=== PATIENT | male | born 1945 | race American Indian/Alaskan Native ===

== ENCOUNTER 2017-03-15 17:36 | Emergency (ER) | payer BC, MEDICARE ==
[2017-03-16] MEDS ORDERED: MOTRIN ONE (01:23)
[2017-03-16] MEDS ORDERED: MOTRIN PO ONE (01:24)
--- NOTE | 2017-03-16 02:00 | XRay Report ---
FINAL REPORT EXAM: XR SPINE CERVICAL 2-3V HISTORY: pain to neck TECHNIQUE: Four views of the cervical spine were obtained. FINDINGS: C1 through C6 are identified. C7 is not adequately seen for evaluation. There is [id number] narrowing of the C4-C5 and C5-C6 disc with endplate spurring. The alignment appears normal. The prevertebral soft tissues and C1-C2 articulation appears intact. IMPRESSION: Limited study as described. 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 C7 not adequately seen for evaluation
[2017-03-16 02:56] VITALS: BP 138/84
--- NOTE | 2017-03-16 05:01 | Emergency Department Report ---
ED Neck Pain/Injury HPI - General Chief Complaint: Neck Pain/Injury Stated Complaint: NECK AND BACK PAIN Time Seen by Provider: 03/16/17 04:49 Source: patient, family () Mode of arrival: Ambulatory Limitations: No Limitations - History of Present Illness Complaint: neck pain -: Gradual (2 weeks) Place: home Radiation: right shoulder, left shoulder Severity scale (0 -10): 10 Quality: aching Consistency: intermittent Improves With: other (message by ) Worsens With: movement of neck Context: other (sleep) Associated Symptoms: denies: headache, numbness, tingling, weakness, difficulty walking, difficulty swallowing Treatments Prior to Arrival: Ibuprofen - Related Data Previous Rx's Medication Instructions Recorded Last Taken Type Cyclobenzaprine [Flexeril] 10 mg PO TID PRN #30 tablet 03/16/17 Unknown Rx Ibuprofen [Motrin] 800 mg PO Q8HR PRN #30 tablet 03/16/17 Unknown Rx Allergies Allergy/AdvReac Type Severity Reaction Status Date / Time No Known Allergies Allergy Unverified 03/15/17 19:28 ED Review of Systems ROS: Stated complaint: NECK AND BACK PAIN Other details as noted in HPI Comment: All other systems reviewed and negative Constitutional: denies: diaphoresis, fever Respiratory: denies: cough Cardiovascular: denies: chest pain, palpitations, syncope Skin: as per HPI (keloids noted to neck) Neurological: as per HPI ED Past Medical Hx - Past Medical History Hx Hypertension: Yes Hx Congestive Heart Failure: Yes Hx COPD: Yes - Surgical History Past Surgical History?: Yes - Social History Smoking Status: Former Smoker Substance Use Type: None - Medications Home Medications: Home Medications Medication Instructions Recorded Confirmed Last Taken Type Cyclobenzaprine [Flexeril] 10 mg PO TID PRN #30 tablet 03/16/17 Unknown Rx Ibuprofen [Motrin] 800 mg PO Q8HR PRN #30 tablet 03/16/17 Unknown Rx ED Physical Exam - General Limitations: No Limitations General appearance: alert - Head Head exam: Present: atraumatic - Eye Eye exam: Present: normal appearance - ENT ENT exam: Present: normal exam - Respiratory Respiratory exam: Present: normal lung sounds bilaterally (Patient on O2 NC 2L) - Cardiovascular Cardiovascular Exam: Present: regular rate - Back Exam Back exam: Present: normal inspection, vertebral tenderness - Neurological Exam Neurological exam: Present: alert, oriented X3 (Oxygen at home 2L), CN II-XII intact - Psychiatric Psychiatric exam: Present: normal affect - Skin Skin exam: Present: warm, dry, intact ED Course Vital Signs 03/15/17 03/16/17 19:28 01:55 Temperature 98.3 F 97.9 F Pulse Rate 69 60 Respiratory 20 18 Rate Blood Pressure 121/83 Blood Pressure 138/84 [Right] O2 Sat by Pulse 92 94 Oximetry ED Medical Decision Making - Medical Decision Making Iván is a 71 year old male who presents to the emergency room c/o neck pain. He reports 2 weeks ago upon awakening he began to have neck pain. He rates pain 10/10. He describes pain as an aching sensation. Pain radiates to bilateral shoulders. Relieving factors include messaging the neck and resting. An Aggravated factor includes movement of the head. [id number] Aleve provided no relief. Upon physical examination for range of motion was noted. Patient was able to flex, extend, and rotate head to the appropriate degrees. Tenderness to palpitation was noted. X-ray of the cervical spine was ordered. Results were interpreted by the radiologist. Patient made aware. Patient given a copy to share with PCP and Orthopedics. Patient given Flexeril when necessary for muscle spasm. Patient given ibuprofen for pain and inflammation. Patient instructed to follow up with PCP and Orthopedics in 3-5 days. Critical care attestation.: If time is entered above; I have spent that time in minutes in the direct care of this critically ill patient, excluding procedure time. ED Disposition Disposition: - TO HOME OR SELFCARE Is pt being admited?: No Does the pt Need Aspirin: No (is all blood the one with the patient's signature , acute left ventricular) Condition: Stable Instructions: Cervical Sprain (ED) Additional Instructions: Patient instructed to follow up with PCP and orthopedics in 3-5 days. If symptoms change, does not improve, or worsen patient is to return to the emergency room immediately. Patient given a copy of x-ray report. Patient verbalizes understanding. Prescriptions: Cyclobenzaprine [Flexeril] 10 mg PO TID PRN #30 tablet PRN Reason: Muscle Spasm Ibuprofen [Motrin] 800 mg PO Q8HR PRN #30 tablet PRN Reason: Pain Referrals: ANDRA HENSLEY MD [Staff Physician] - 3-5 Days JAE KIM MD [Staff Physician] - 3-5 Days Forms: Accompanied Note, Work/School Release Form(ED)
== END 2017-03-16 05:36 | disposition home or self-care (01) ==
LOC: ED 17:36
DX: M54.2 Cervicalgia (principal); I10 Essential (primary) hypertension; J44.9 Chronic obstructive pulmonary disease, unspecified; I50.9 Heart failure, unspecified; Z87.891 Personal history of nicotine dependence
CPT/HCPCS: 72040; 99283

== ENCOUNTER 2020-04-28 13:02 | Emergency (ER) | payer BC, MEDICARE ==
[~2020-04-28 13:02] MED LIST: EPINEPHrine 1 MG/10 ML SYRINGE ONE
--- NOTE | 2020-04-28 13:16 | Emergency Department Report ---
ED CPR HPI - General Chief Complaint: Cardiac Arrest/CPR Stated Complaint: CARDIAC ARREST Time Seen by Provider: 04/28/20 13:16 Source: family, EMS (Verbal report received from emergency medical services. EMS documentation not available at time of chart dictation ), RN notes reviewed Mode of arrival: Stretcher Limitations: Altered Mental Status, Physical Limitation - History of Present Illness Initial Comments: The patient was evaluated in the emergency department for symptoms described in the history of present illness. He/she was evaluated in the context of the global COVID-19 pandemic, which necessitated consideration that the patient might be at risk for infection with the virus that causes COVID-19. Institutional protocols and algorithms that pertain to the evaluation of patients at risk for COVID-19 are in a state of rapid change based on information released by regulatory bodies including the CDC and federal and state organizations. These policies and algorithms were followed during the patient's care in the emergency department. Please note that these policies, procedures and recommendations changed on a rapid basis. The patient is a 74-year-old gentleman. He is brought to the hospital by emergency medical services as out of hospital cardiac arrest. Patient in arrest, with a GCS of 3, intubated upon arrival. History obtained from EMS, and subsequently family. As per family, patient was in his usual state of health today, going to an outpatient Covid vaccination center. Patient was not having Covid symptoms. In the car, became unresponsive. Family started CPR. 911 activated. EMS estimates approximately 2 minutes from initial 911 call to their arrival. They report the patient not breathing, pulseless, without shockable rhythm. EMS intubated the patient with an 8.0 endotracheal tube. He received high-quality CPR, and standard ACLS medications. He received 3 rounds of epinephrine. At no point time did patient have a shockable rhythm. EMS estimates approximately 1/2-hour from their initial medical contact, to emergency room arrival. During that time, no pulses, no shockable rhythm, no change in status. EMS reports normal Accu-Chek. Upon arrival to this emergency room, patient pulseless, pupils fixed, do not react to light, and patient does not have a shockable rhythm. High-quality CPR was continued. Standard ageless medications are administered. In spite of aggressive resuscitative efforts, pulses are not obtained, bedside ultrasounds show no pulses, no dopplerable pulses, and no coordinated ventricular activity. Patient found to have cardiac standstill on ultrasound. Resuscitative efforts were therefore terminated secondary to medical futility. The patient's family is subsequently informed. Complaint: stopped breathing -: minute(s) Place: other Initial Findings in the Field: unresponsive, no pulse, PEA ROSC in the Field: No Associated Injuries: No Treatments Prior to Arrival: intubation, chest compressions, epinephrine mgs # - Related Data Previous Rx's Medication Instructions Recorded Last Taken Type Cyclobenzaprine [Flexeril] 10 mg PO TID PRN #30 tablet 03/16/17 Unknown Rx Ibuprofen [Motrin] 800 mg PO Q8HR PRN #30 tablet 03/16/17 Unknown Rx Allergies Allergy/AdvReac Type Severity Reaction Status Date / Time No Known Allergies Allergy Unverified 03/15/17 19:28 ED Review of Systems ROS: Stated complaint: CARDIAC ARREST Other details as noted in HPI Comment: Unobtainable due to pts medical conditions ED Past Medical Hx - Past Medical History Hx Hypertension: Yes Hx Congestive Heart Failure: Yes Hx COPD: Yes - Social History Smoking Status: Former Smoker Substance Use Type: None - Medications Home Medications: Home Medications Medication Instructions Recorded Confirmed Last Taken Type Cyclobenzaprine [Flexeril] 10 mg PO TID PRN #30 tablet 03/16/17 Unknown Rx Ibuprofen [Motrin] 800 mg PO Q8HR PRN #30 tablet 03/16/17 Unknown Rx ED Physical Exam - General Limitations: Altered Mental Status, Physical Limitation General appearance: obtunded, obese - Head Head exam: Present: atraumatic, normocephalic - Eye Eye exam: Present: other (Pupils do not react to light) - ENT ENT exam: Present: mucous membranes moist, other (Endotracheal tube noted in the oropharynx) - Neck Neck exam: Present: normal inspection - Respiratory Respiratory exam: Present: other (No breath sounds). Absent: respiratory distress - Cardiovascular Cardiovascular Exam: Absent: regular rate, normal rhythm, bradycardia, tachycardia, irregular rhythm, normal heart sounds, systolic murmur, diastolic murmur, rubs, gallop - GI/Abdominal GI/Abdominal exam: Absent: distended, tenderness, guarding, rebound, rigid, pulsatile mass - Rectal Rectal exam: Present: deferred - Extremities Exam Extremities exam: Present: normal inspection - Back Exam Back exam: Present: normal inspection - Neurological Exam Neurological exam: Present: altered, other (Nonverbal, GCS of 3) - Psychiatric Psychiatric exam: Present: other (The patient is nonverbal) - Skin Skin exam: Present: warm, dry, intact, normal color. Absent: rash ED Medical Decision Making - Medical Decision Making Differential diagnosis, including but not limited to: Acute coronary syndrome, pulmonary embolism, arrhythmia Critical care attestation.: If time is entered above; I have spent that time in minutes in the direct care of this critically ill patient, excluding procedure time. ED Disposition Clinical Impression: Cardiac arrest Disposition: DC-20 Is pt being admited?: No Does the pt Need Aspirin: No Condition: Undetermined
== END 2020-04-28 19:47 ==
LOC: ED 13:02
DX: I46.9 Cardiac arrest, cause unspecified (principal); I11.0 Hypertensive heart disease with heart failure; I50.9 Heart failure, unspecified; J44.9 Chronic obstructive pulmonary disease, unspecified; Z87.891 Personal history of nicotine dependence; Z79.1 Long term (current) use of non-steroidal anti-inflammatories (NSAID); Z79.899 Other long term (current) drug therapy
CPT/HCPCS: 92950; 99285; J0171